=== PATIENT | female | born 1935 | race Caucasian/White ===

== ENCOUNTER 2016-11-20 11:08 | Emergency (ER) | payer OTHER, MEDICARE ==
[~2016-11-20] VITALS: Ht 165.1 cm; Wt 56.0 kg
[~2016-11-20 11:08] MED LIST: CARV3.125 PO; DILA2TAB4 PO; ROSU10 PO; TRAM50 PO
[2016-11-20 11:16] VITALS: BP 215/95; PULSE 76; RESP 20; TEMP 98.3; O2SAT 97
[2016-11-20] MEDS ORDERED: PRAD75CA PO (12:29)
[2016-11-20] MEDS ORDERED: CARD240C6 PO (12:29)
[2016-11-20] MEDS ORDERED: ZOCO40TA PO (12:29)
[2016-11-20] MEDS ORDERED: ACETAMINOPHEN 325 MG TAB PO ONE (12:30)
--- NOTE | 2016-11-20 12:35 | PD ---
HPI Chief Complaint: Fall Time Seen by Provider: 12:05 Travel History International Travel<30 days: No Contact w/Intl Traveler<30days: No Traveled to known affect area: No History of Present Illness HPI The patient is a 81-year-old female who presents to the emergency department for a fall. 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 The patient fell forward, striking her left knee and her nose on the ground. The patient denies any loss of consciousness after the fall, however, did note some bleeding out of the left knee area which is currently resolved. The patient also complains of pain over the anterior aspect the left knee which is worse with movement and weightbearing. The patient states she was able to bear weight with limited ability secondary to pain. She denies any headache, however, does state she takes Pradaxa for history of atrial fibrillation. The patient denies any current neck pain, chest pain, shortness breath, nausea, vomiting, or abdominal pain. Symptoms are mild to moderate, exacerbated after falling, and there are no current alleviating factors. 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) Other Surgery: Yes Social History Alcohol Use: No Tobacco Use: No Substance Use: No Allergies-Medications (Allergen,Severity, Reaction): Coded Allergies: Adhesives (Verified Allergy, Mild, 10/01/09) Morphine (Verified Allergy, Mild, 10/01/09) Penicillin (Verified Allergy, Mild, 10/01/09) Reported Meds & Prescriptions Reported Meds & Active Scripts Active Reported Coreg (Carvedilol) 6.25 Mg Tab 6.25 Mg PO BID Crestor (Rosuvastatin Calcium) 10 Mg Tab 10 Mg PO DAILY Cardizem CD 24 HR (Diltiazem CD 24 HR) 240 Mg Caper 240 Mg PO DAILY Pradaxa (Dabigatran) 75 Mg Cap 75 Mg PO BID Review of Systems Except as stated in HPI: all other systems reviewed are Neg General / Constitutional: No: Fever HENT: Positive: Nosebleed (resolved), No: Headaches, Neck Pain Cardiovascular: No: Chest Pain or Discomfort Respiratory: No: Shortness of Breath Gastrointestinal: No: Nausea, Vomiting, Abdominal Pain Skin: Positive Other (abrasion to the upper lip) Neurologic: No: Headache, Change in Mentation Physical Exam Narrative GENERAL: Awake, alert, pleasant 81 year-old female who appears her stated age and is in no acute respiratory distress. SKIN: Focused skin assessment warm/dry. Superficial abrasion to the upper lip. Head: Mild edema over the nasal bridge. EYES: Pupils equal and round. No scleral icterus. No injection or drainage. ENT: No nasal bleeding or discharge. Dry blood in the left near. No visible septal hematoma. NECK: Trachea midline. No JVD. No tenderness of the cervical vertebrae. Full range of motion with flexion, extension, and rotation. MUSCULOSKELETAL: Mild edema the left knee, patella is midline. She is able flex the left hip and knee to 45. Full range of motion of the right lower extremity and upper extremities. Back: No tenderness over the thoracic or lumbar vertebrae. NEUROLOGICAL: Awake and alert. No obvious cranial nerve deficits. Motor grossly within normal limits. Normal speech. Alert and oriented. Follows commands without difficulty. Nonfocal. PSYCHIATRIC: Appropriate mood and affect; insight and judgment normal. Data Data Last Documented VS Vital Signs Date Time Temp Pulse Resp B/P Pulse Ox O2 Delivery O2 Flow Rate FiO2 11/20/16 11:16 98.3 76 20 215/95 97 Orders Acetaminophen (Tylenol) (11/20/16 12:30) Knee, Complete (4vws) (11/20/16 ) Ct Brain W/O Iv Contrast(Rout) (11/20/16 ) [facility] Medical Decision Making Medical Screen Exam Complete: Yes Emergency Medical Condition: Yes Medical Record Reviewed: Yes Interpretation(s) Last Impressions Head CT 11/20/16 0000 Signed Impressions: Service Date/Time: Sunday, November 20, 2016 12:57 - CONCLUSION: Normal examination. Moses Garza MD X-ray of the knee reveals possible nondisplaced transverse fracture of the patella. CPPD arthropathy with chondrocalcinosis with mild area of the medial joint compartment with subchondral sclerosis along the medial femoral condyle is noted. Differential Diagnosis Differential diagnosis includes fracture, dislocation, contusion, hematoma, closed head injury, intracranial hemorrhage, subarachnoid hemorrhage, epistaxis , nasal fracture. Narrative Course CT of the brain was obtained. X-ray of the left knee was obtained. The patient was administered Tylenol 650 mg orally [address] the brain was negative. X-ray of the knee reveals a faint radiolucency seen transversely along the mid patella, possible nondisplaced transverse fracture. Therefore, the patient was placed in a knee splint and provided crutches. The patient has seen [facility] in the past, she is advised to follow-up with her orthopedist. Activity as tolerated. Hydrocodone with Tylenol as needed for pain. The patient is on Pradaxa, will avoid nonsteroidal anti-inflammatories. Patient is comfortable with this plan of care and disposition. Diagnosis Primary Impression: Nondisplaced fracture of patella Qualified Code: S82.035A - Closed nondisplaced transverse fracture of left patella, initial encounter Additional Impressions: Epistaxis Closed head injury Qualified Code: S09.90XA - Closed head injury, initial encounter Patient Instructions: General Instructions Additional Instructions: Cannabis knee splint and crutches as directed. Hydrocodone with acetaminophen as directed. Follow-up with the orthopedist. Return if symptoms worsen or progress. Med/Other Pt SpecificInfo: Prescription(s) given Scripts Hydrocodone-Acetaminophen ([place])5-325 mg Tab1 Tab PO Q6H PRN (PAIN) #15 TAB Ref 0 Prov:Butch Mckinnon MD 11/20/16 Disposition: 01 DISCHARGE HOME Condition: Stable Butch Mckinnon MD Nov 20, 2016 12:35
[2016-11-20] MEDS ORDERED: CARV6.25 PO (12:36)
[2016-11-20] MEDS ORDERED: ROSU10 PO (12:36)
--- NOTE | 2016-11-20 13:10 | RADRPT ---
EXAM DATE/TIME: 11/20/2016 12:57 [facility] COMPARISON: No previous studies available for comparison. INDICATIONS : Trauma. Tripped and fell and hit her face. RADIATION DOSE: 63.56 CTDIvol (mGy) MEDICAL HISTORY : Carcinoma, breast. Carcinoma, lung. Cardiovascular diseaseHypertension. SURGICAL HISTORY : Mastectomy, bilateral. Appendectomy.Splenectomy.Hysterectomy. ENCOUNTER: Initial ACUITY: 1 day PAIN SCALE: 4/10 LOCATION: cranial TECHNIQUE: Multiple contiguous axial images were obtained of the head. Using automated exposure control and adj ustment of the mA and/or kV according to patient size, radiation dose was kept as low as reasonably a chievable to obtain optimal diagnostic quality images. DICOM format image data is available electro nically for review and comparison. FINDINGS: CEREBRUM: The ventricles are normal for age. No evidence of midline shift, mass lesion, hemorrhage or acute in farction. No extra-axial fluid collections are seen. POSTERIOR FOSSA: The cerebellum and brainstem are intact. The 4th ventricle is midline. The cerebellopontine angle i s unremarkable. EXTRACRANIAL: The visualized portion of the orbits is intact. SKULL: The calvaria is intact. No evidence of skull fracture. CONCLUSION: Normal examination. Moses Garza MD on November 20, 2016 at 13:07 Board Certified Radiologist. This report was verified electronically.
--- NOTE | 2016-11-20 13:38 | RADRPT ---
EXAM DATE/TIME: 11/20/2016 12:34 [facility] COMPARISON: No previous studies available for comparison. INDICATIONS : Left knee pain after falling MEDICAL HISTORY : None. SURGICAL HISTORY : Previous knee surgery ENCOUNTER: Initial ACUITY: 1 day PAIN SCORE: 10/10 LOCATION: Left anterior knee FINDINGS: Four view examination of the left knee demonstrates significant chondrocalcinosis with meniscal and h yaline cartilage calcification. Mild narrowing of the medial joint compartment with subchondral scler osis along the medial femoral condyle is noted. A faint radiolucency is seen transversely across the mid patella. The femur, proximal tibia and fibul a appear intact. There is no joint effusion. CONCLUSION: 1. Possible nondisplaced transverse fracture of the patella. 2. CPPD arthropathy with chondrocalcinosis as described above. Jj Thorpe MD on November 20, 2016 at 13:34 Board Certified Radiologist. This report was verified electronically.
[2016-11-20] MEDS ORDERED: NORC5TAB PO (13:45)
== END 2016-11-20 15:54 | disposition home or self-care (01) ==
LOC: PHED 11:08
DX: S82.035A Nondisplaced transverse fracture of left patella, initial encounter for closed fracture (principal); R04.0 Epistaxis; S09.90XA Unspecified injury of head, initial encounter; I10 Essential (primary) hypertension; E78.00 Pure hypercholesterolemia, unspecified; Z79.01 Long term (current) use of anticoagulants; Z86.79 Personal history of other diseases of the circulatory system; Z85.3 Personal history of malignant neoplasm of breast; Z85.118 Personal history of other malignant neoplasm of bronchus and lung; W18.39XA Other fall on same level, initial encounter
CPT/HCPCS: 70450; 73564; 99284; E0113